=== PATIENT | female | born 1995 | race African-American/Black ===

== ENCOUNTER 2022-05-18 19:10 | Inpatient (IN) | payer OTHER ==
[2022-05-18] MEDS: DEXTROSE 5%-LACTATED RINGERS 1,000 ML IV SCH (20:15)
[2022-05-18 21:40] VITALS: BMI 32.1
[2022-05-18] MEDS: MISOPROSTOL 25 MCG TABLET (COMPOUNDED BY PHARMACY) PV SCH (22:00)
[2022-05-18] MEDS: LABETALOL HCL 200 MG TABLET (FP) PO SCH (22:00)
[2022-05-19] MEDS ORDERED: LABETALOL HCL 5 MG/1 ML (100MG/20 ML VIAL) IVPUSH ONE (02:26)
[2022-05-19] MEDS ORDERED: SODIUM CHLORIDE 500 ML IV STA (02:27)
[2022-05-19] MEDS ORDERED: PENICILLIN G POTASSIUM 5,000,000 (5Mm) UNIT VIAL IVPB ONE (02:31)
[2022-05-19] MEDS: MAGNESIUM SULFATE 20GM/500ML - 20 GM/500 ML INFUS.BAG IVPB SCH ×3 (03:57→23:00)
[2022-05-19] MEDS ORDERED: MAGNESIUM 4GM/H20 - 4 GM/100 ML IVPB IVPB SCH (04:15)
[2022-05-19] MEDS ORDERED: BENZOCAINE 28 GM HEMORRHOIDAL OINTMENT TP PRN (04:16)
[2022-05-19] MEDS ORDERED: ACETAMINOPHEN 325 MG TABLET (FP) PO PRN (04:16)
[2022-05-19] MEDS ORDERED: BENZOCAINE 20% 57 GM BOTTLE TP PRN (04:16)
[2022-05-19] MEDS ORDERED: WITCH HAZEL 50% (TUCKS) 40 PAD/JAR PAD TP PRN (04:16)
[2022-05-19] MEDS ORDERED: METHYLERGONOVINE MALEATE 0.2 MG/1 ML AMP IM PRN (04:16)
[2022-05-19] MEDS: MISOPROSTOL 25 MCG TABLET (COMPOUNDED BY PHARMACY) PV SCH ×2 (04:18→06:14)
[2022-05-19] MEDS ORDERED: OXYTOCIN 20 UNITS in 0.9% NS 20 UNIT/1,000 ML INFUS.BAG IV SCH ×2 (04:30→05:45)
[2022-05-19 04:51] LABS: CORD BASE EXCESS -1.7 mmol/L (0-2); CORD HCO3 25.1 mmHg (20-29); CORD PCO2 49.2 mmHg (30-78); CORD pH 7.325 (7.14-7.44)
[2022-05-19 04:58] LABS: CORD BASE EXCESS -5.2 mmol/L (0-2); CORD HCO3 18.2 mmHg (20-29); CORD PCO2 27.4 mmHg (30-78); CORD pH 7.44 (7.14-7.44)
[2022-05-19 05:02] LABS: CORD BASE EXCESS -5.5 mmol/L (0-2); CORD HCO3 22.2 mmHg (20-29); CORD PCO2 51.9 mmHg (30-78); CORD pH 7.25 (7.14-7.44)
[2022-05-19 05:04] LABS: CORD BASE EXCESS -3.2 mmol/L (0-2); CORD HCO3 23.3 mmHg (20-29); CORD PCO2 46.6 mmHg (30-78); CORD pH 7.317 (7.14-7.44)
[2022-05-19] MEDS: FERROUS SO4 325 MG TABLET (FP) PO SCH ×3 (08:27→18:00)
[2022-05-19] MEDS ORDERED: PRENATAL VITAMINS W/ FOLIC ACID TABLET (FP) PO ONE (10:17)
[2022-05-19] MEDS ORDERED: LABETALOL HCL 100 MG TABLET (FP) ONE ×2 (10:17→22:07)
[2022-05-19] MEDS: PRENATAL VITAMINS W/ FOLIC ACID TABLET (FP) PO SCH (10:22)
[2022-05-19] MEDS: LABETALOL HCL 200 MG TABLET (FP) PO SCH ×2 (10:22→22:10)
[2022-05-19] MEDS: DEXTROSE 5%-LACTATED RINGERS 1,000 ML IV SCH (12:00)
[2022-05-19] MEDS ORDERED: FERROUS SO4 325 MG TABLET (FP) ONE (12:17)
[2022-05-20] MEDS: DEXTROSE 5%-LACTATED RINGERS 1,000 ML IV SCH (00:30)
[2022-05-20] MEDS ORDERED: IBUPROFEN 600 MG TABLET (FP) PO ONE (02:37)
[2022-05-20] MEDS: IBUPROFEN 600 MG TABLET (FP) PO PRN ×2 (02:40→15:47)
[2022-05-20] MEDS: FERROUS SO4 325 MG TABLET (FP) PO SCH ×3 (09:00→17:33)
[2022-05-20 09:08] LABS: BASO % 0.4 % (0-2.0); EOS % 0.2 % (0-4.5); HEMATOCRIT 24.8 % (32.4-45.2); HEMOGLOBIN 8.5 GM/dL (10.7-15.3); LYMPH % 30.2 % (8-40); MCHC 34.3 g/dl (32.0-36.0); MEAN CELL VOLUME 96.2 fl (80-96); MEAN PLT VOLUME 9.8 fl (7.5-11.1); MONO % 8.5 % (3.8-10.2); NEUT % 60.7 % (42.8-82.8); PLATELET COUNT 74 10^3/uL (134-434); RBC 2.58 M/mm3 (3.60-5.2); RDW 13.2 % (11.6-15.6); WHITE BLOOD COUNT 10.9 K/mm3 (4.0-10.0)
[2022-05-20] MEDS: LABETALOL HCL 200 MG TABLET (FP) PO SCH ×2 (10:02→22:00)
[2022-05-20] MEDS: PRENATAL VITAMINS W/ FOLIC ACID TABLET (FP) PO SCH (10:02)
[2022-05-20] MEDS: MAGNESIUM SULFATE 20GM/500ML - 20 GM/500 ML INFUS.BAG IVPB SCH (15:53)
[2022-05-21] MEDS: PRENATAL VITAMINS W/ FOLIC ACID TABLET (FP) PO SCH (09:32)
[2022-05-21] MEDS: LABETALOL HCL 200 MG TABLET (FP) PO SCH ×2 (09:32→21:54)
[2022-05-21] MEDS: FERROUS SO4 325 MG TABLET (FP) PO SCH ×2 (09:33→12:20)
[2022-05-21 12:02] LABS: BASO % 0.5 % (0-2.0); EOS % 0.7 % (0-4.5); HEMATOCRIT 22.3 % (32.4-45.2); HEMOGLOBIN 7.7 GM/dL (10.7-15.3); LYMPH % 22.1 % (8-40); MCH 33.2 pg (25.7-33.7); MCHC 34.6 g/dl (32.0-36.0); MEAN PLT VOLUME 9.9 fl (7.5-11.1); MONO % 7.2 % (3.8-10.2); NEUT % 69.5 % (42.8-82.8); PLATELET COUNT 103 10^3/uL (134-434); RBC 2.33 M/mm3 (3.60-5.2); RDW 13.5 % (11.6-15.6); WHITE BLOOD COUNT 14.4 K/mm3 (4.0-10.0)
[2022-05-21 21:57] VITALS: RESP 18; TEMP 98.2
[2022-05-22] MEDS: FERROUS SO4 325 MG TABLET (FP) PO SCH ×4 (06:53→17:56)
[2022-05-22] MEDS: PRENATAL VITAMINS W/ FOLIC ACID TABLET (FP) PO SCH (09:03)
[2022-05-22] MEDS: LABETALOL HCL 200 MG TABLET (FP) PO SCH (09:03)
[2022-05-22] MEDS: IBUPROFEN 600 MG TABLET (FP) PO PRN (09:07)
[2022-05-22 09:22] VITALS: BP 138/68; PULSE 103
== END 2022-05-22 19:10 | disposition home or self-care (01) | DRG 560 ==
LOC: JLDR 19:10 → J3W 05-20 05:10
PROVIDERS: ADMIT Obstetrics & Gynecology Maternal & Fetal Medicine; ATTEND Obstetrics & Gynecology Maternal & Fetal Medicine
PROC: 10E0XZZ Delivery of Products of Conception, External Approach (ICD-10-PCS; principal; 2022-05-19)
PROC: 0HQ9XZZ Repair Perineum Skin, External Approach (ICD-10-PCS; 2022-05-19)
PROC: 0W8NXZZ Division of Female Perineum, External Approach (ICD-10-PCS; 2022-05-19)
DX: O70.0 First degree perineal laceration during delivery (principal); O30.043 Twin pregnancy, dichorionic/diamniotic, third trimester; O99.12 Other diseases of the blood and blood-forming organs and certain disorders involving the immune mechanism complicating childbirth; O13.4 Gestational [pregnancy-induced] hypertension without significant proteinuria, complicating childbirth; O14.13 Severe pre-eclampsia, third trimester; O99.013 Anemia complicating pregnancy, third trimester; Z3A.37 37 weeks gestation of pregnancy; Z37.2 Twins, both liveborn
CPT/HCPCS: 36415; 36600; 82803; 85025; 86593; 86780; 88307-TC; 93970-TC